=== PATIENT | female | born 2005 | race Caucasian/White ===

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

== ENCOUNTER 2023-01-07 21:55 | Emergency (ER) | payer MEDICAID, MEDICARE ==
[~2023-01-07] VITALS: Ht 172.7 cm; Wt 84.5 kg
[2023-01-07 22:10] VITALS: BP 137/60
== END 2023-01-08 01:03 | disposition home or self-care (01) ==
LOC: M ED 21:55
DX: O99.343 Other mental disorders complicating pregnancy, third trimester (principal); F43.0 Acute stress reaction; O9A.213 Injury, poisoning and certain other consequences of external causes complicating pregnancy, third trimester; S51.802A Unspecified open wound of left forearm, initial encounter; X78.9XXA Intentional self-harm by unspecified sharp object, initial encounter; F32.A Depression, unspecified; Z79.899 Other long term (current) drug therapy; Z3A.38 38 weeks gestation of pregnancy

== ENCOUNTER 2023-01-17 16:35 | Inpatient (IN) | payer MEDICARE, OTHER ==
[~2023-01-17] VITALS: Ht 172.7 cm; Wt 84.4 kg
[2023-01-17 16:49] VITALS: BP 141/68
[2023-01-17 17:05] VITALS: BP 126/75
[2023-01-17 17:16] VITALS: BP 126/65
[2023-01-17] MEDS ORDERED: HOME MED LIST COMPLETE! XX SCH (17:25)
[2023-01-17] MEDS ORDERED: LR 1,000 ML IV ONE (17:30)
[2023-01-17 18:57] VITALS: BP 119/73
[2023-01-17 20:06] LABS: AMPHETAMINES URINE REFLEX NEGATIVE (NEGATIVE); BENZODIAZEPINES URINE REFLEX NEGATIVE (NEGATIVE)
[2023-01-17 20:07] LABS: BARBITURATES URINE REFLEX NEGATIVE (NEGATIVE); CANNABINOIDS URINE REFLEX NEGATIVE (NEGATIVE); COCAINE METABOLITE URINE REFLE NEGATIVE (NEGATIVE); METHADONE URINE REFLEX NEGATIVE (NEGATIVE); OPIATES URINE REFLEX NEGATIVE (NEGATIVE); PHENCYCLIDINE URINE REFLEX NEGATIVE (NEGATIVE)
[2023-01-17 21:24] VITALS: BP 129/74
[2023-01-17] MEDS ORDERED: PROMETHAZINE 25MG/ML 1ML VIAL IV ONE (22:10)
[2023-01-17] MEDS ORDERED: BUTORPHANOL 2 MG/ML 1ML VIAL IV ONE (22:10)
[2023-01-17] MEDS ORDERED: LIDOCAINE 1% MDV 20ML VIAL INFIL PRN (23:35)
[2023-01-17] MEDS ORDERED: CARBOPROST TROMETHAMINE 250 MCG/ML AMP IM PRN (23:35)
[2023-01-17] MEDS ORDERED: METHYLERGONOVINE MALEATE 0.2MG/ML 1ML VIAL IM PRN (23:35)
[2023-01-17] MEDS ORDERED: TRANEXAMIC ACID INJection 1,000 MG in NS 100 ML IV PRN (23:35)
[2023-01-17] MEDS ORDERED: OXYTOCIN DRIP 30 UNITS in IV 1 EA IV PRN (23:35)
[2023-01-18] VITALS (24 sets, daily range): BP systolic 111–140; BP diastolic 55–85
[2023-01-18] MEDS ORDERED: NALOXONE INJ 0.4MG/1ML VIAL IV PRN (01:10)
[2023-01-18] MEDS ORDERED: diphenhydrAMINE 50MG/ML VIAL IV PRN (01:10)
[2023-01-18] MEDS ORDERED: EPIDURAL/PCA KEYS XX PRN (01:10)
[2023-01-18] MEDS ORDERED: ePHEDrine SULFATE 25 MG/5 ML(5MG/ML) SYRINGE IVP PRN (01:10)
[2023-01-18] MEDS ORDERED: FENTANYL/ROPIVACAINE/NACL BAG 100 ML EPIDURAL SCH (01:10)
[2023-01-18] MEDS ORDERED: LR 500 ML IV PRN (01:10)
[2023-01-18] MEDS ORDERED: ONDANSETRON 4MG 2ML VIAL IV PRN (01:10)
[2023-01-18 01:12] LABS: HEMATOCRIT 39.3 % (36.0-47.0); HEMOGLOBIN 12.2 g/dl (12.0-15.5); MEAN CORPUSCULAR HEMOGLOBIN 26.8 pg (27.0-33.0); MEAN CORPUSCULAR VOLUME 86.4 fl (80.0-96.0); PLATELET COUNT, AUTOMATED 268 10^3/uL (150-450); RED BLOOD COUNT 4.55 10^6/uL (4.00-5.40); WHITE BLOOD COUNT 16.8 10^3/uL (4.0-10.0)
[2023-01-18] MEDS: LR 1,000 ML IV SCH ×4 (03:52→23:35)
[2023-01-18] MEDS ORDERED: OXYTOCIN DRIP 30 UNITS in IV 1 EA IV SCH ×2 (05:10→10:45)
[2023-01-18] MEDS ORDERED: METHYLERGONOVINE MALEATE 0.2 MG TAB PO PRN (10:45)
[2023-01-18] MEDS ORDERED: DIBUCAINE 1% OINTMENT 30GM TOP PRN (10:45)
[2023-01-18] MEDS ORDERED: RHOGAM 300MCG (1500IU) INJ IM SCH (10:45)
[2023-01-18] MEDS ORDERED: ACETAMINOPHEN 500 MG TAB PO PRN (10:45)
[2023-01-18] MEDS ORDERED: ANUSOL HC CREAM 30GM TOP PRN (10:45)
[2023-01-18] MEDS ORDERED: DOCUSATE SODIUM 100MG CAPSULE PO PRN (10:45)
[2023-01-18] MEDS ORDERED: IBUPROFEN 600MG TAB PO PRN (10:45)
[2023-01-18] MEDS ORDERED: IBUPROFEN 800 MG TAB PO PRN (10:45)
[2023-01-18] MEDS ORDERED: ACETAMINOPHEN TAB 650MG DOSE (2X325MG) PO PRN (10:45)
[2023-01-19 06:00] VITALS: BP 113/75
[2023-01-19] MEDS: LR 1,000 ML IV SCH (07:35)
[2023-01-19] MEDS: PRENATAL VITAMINS CHEWABLE TABLET PO SCH (09:20)
[2023-01-19 16:00] VITALS: BP 120/78
[2023-01-19 18:00] VITALS: BP 120/78
[2023-01-20 06:00] VITALS: BP 112/72
[2023-01-20] MEDS ORDERED: MEASLES,MUMPS,RUBELLA VACCINE INJ (MMR-II) SC.IMMUN ONE (09:00)
[2023-01-20] MEDS: PRENATAL VITAMINS CHEWABLE TABLET PO SCH (09:30)
[2023-01-20] MEDS ORDERED: IBUP80TA PO (10:40)
[2023-01-20] MEDS ORDERED: ACET-683 PO (10:40)
[2023-01-20 18:00] VITALS: BP 117/57
[2023-01-21 06:07] VITALS: BP 125/73
[2023-01-21] MEDS: PRENATAL VITAMINS CHEWABLE TABLET PO SCH (08:49)
[2023-01-21] MEDS ORDERED: COLA100C5 PO (14:58)
== END 2023-01-21 14:00 | disposition home or self-care (01) | DRG 560 ==
LOC: M LDO 16:35 → M LDI 21:13 → M OBS 01-18 12:56
PROVIDERS: ADMIT Advanced Practice Midwife; ATTEND Obstetrics & Gynecology
PROC: 10E0XZZ Delivery of Products of Conception, External Approach (ICD-10-PCS; principal; 2023-01-18)
PROC: 0HQ9XZZ Repair Perineum Skin, External Approach (ICD-10-PCS; 2023-01-18)
DX: O99.344 Other mental disorders complicating childbirth (principal); O99.324 Drug use complicating childbirth; F10.11 Alcohol abuse, in remission; F17.210 Nicotine dependence, cigarettes, uncomplicated; Z3A.39 39 weeks gestation of pregnancy; F12.10 Cannabis abuse, uncomplicated; O70.0 First degree perineal laceration during delivery; Z37.0 Single live birth; F43.10 Post-traumatic stress disorder, unspecified; O99.334 Smoking (tobacco) complicating childbirth; F60.3 Borderline personality disorder; O99.314 Alcohol use complicating childbirth

== ENCOUNTER 2023-03-20 01:50 | Emergency (ER) | payer OTHER ==
[~2023-03-20 01:50] MED LIST changes: +ACET-683 PO; +COLA100C5 PO; +IBUP80TA PO
[2023-03-20] MEDS ORDERED: LORazepam 2 MG/ML 1ML VIAL As Ordered ONE (02:36)
[2023-03-20 03:02] LABS: ETHYL ALCOHOL (ETHANOL) 0.172 % (0.000-0.010)
[2023-03-20 03:03] LABS: SALICYLATE LEVEL < 3.0 MG/DL (<30)
[2023-03-20 03:04] LABS: ACETAMINOPHEN LEVEL < 2.0 UG/ML (10.0-20.0); ALBUMIN 3.9 G/DL (3.2-5.2); ALKALINE PHOSPHATASE 123 U/L (46-116); ALT/SGPT 23 U/L (7.0-40); AST/SGOT 31 U/L (<34); BILIRUBIN,DIRECT < 0.1 MG/DL (<0.4); BILIRUBIN,TOTAL 0.3 MG/DL (0.3-1.2); BLOOD UREA NITROGEN 18 MG/DL (9-23); CALCIUM LEVEL 8.3 MG/DL (8.5-10.1); CARBON DIOXIDE LEVEL 18 MMOL/L (20-31); CHLORIDE LEVEL 112 MMOL/L (98-107); GLUCOSE, FASTING 87 MG/DL (60-100); POTASSIUM SERUM 4.4 MMOL/L (3.5-5.1); SODIUM LEVEL 141 MMOL/L (136-145); TOTAL PROTEIN 7.2 G/DL (5.7-8.2)
[2023-03-20 03:13] LABS: HCG, SERUM QUALITATIVE NEGATIVE (NEGATIVE)
[2023-03-20 03:23] LABS: BASO % 0.3 % (0.0-1.0); EOS # 0.1 10^3/uL (0.0-0.5); EOS % 0.9 % (0.0-3.0); HEMATOCRIT 43.5 % (36.0-47.0); HEMOGLOBIN 13.8 g/dl (12.0-15.5); LYMPH % 23.3 % (24.0-44.0); MEAN CORPUSCULAR HEMOGLOBIN 27.3 pg (27.0-33.0); MEAN CORPUSCULAR HGB CONC 31.7 g/dl (32.0-36.5); MONO # 0.9 10^3/uL (0.0-0.8); NEUTROPHILS # 8.7 10^3/uL (1.5-8.5); NEUTROPHILS % 68.3 % (36.0-66.0); PLATELET COUNT, AUTOMATED 319 10^3/uL (150-450); RED BLOOD COUNT 5.06 10^6/uL (4.00-5.40); WHITE BLOOD COUNT 12.7 10^3/uL (4.0-10.0)
[2023-03-20 06:17] LABS: AMPHETAMINES LEVEL URINE NEGATIVE (NEGATIVE); BARBITURATES URINE NEGATIVE (NEGATIVE); BENZODIAZEPINES URINE NEGATIVE (NEGATIVE); COCAINE METABOLITE URINE NEGATIVE (NEGATIVE); METHADONE URINE NEGATIVE (NEGATIVE); OPIATES URINE NEGATIVE (NEGATIVE); PHENCYCLIDINE URINE NEGATIVE (NEGATIVE)
[2023-03-20 06:23] LABS: CANNABINOIDS URINE POSITIVE (NEGATIVE)
== END 2023-03-20 13:27 | disposition home or self-care (01) ==
LOC: M ED 01:50
DX: F10.120 Alcohol abuse with intoxication, uncomplicated (principal); R22.0 Localized swelling, mass and lump, head; R04.0 Epistaxis; Y04.8XXA Assault by other bodily force, initial encounter

== ENCOUNTER 2023-05-01 09:32 | Inpatient (IN) | payer OTHER ==
[~2023-05-01] VITALS: Ht 175.3 cm; Wt 73.6 kg
[2023-05-01 10:39] LABS: HEMATOCRIT 43.7 % (36.0-47.0); MEAN CORPUSCULAR VOLUME 87.4 fl (80.0-96.0); PLATELET COUNT, AUTOMATED 339 10^3/uL (150-450); WHITE BLOOD COUNT 6.1 10^3/uL (4.0-10.0)
[2023-05-01 11:07] LABS: ETHYL ALCOHOL (ETHANOL) < 0.003 % (0.000-0.010)
[2023-05-01 11:09] LABS: ACETAMINOPHEN LEVEL < 2.0 UG/ML (10.0-20.0); ALBUMIN 4.1 G/DL (3.2-5.2); ALKALINE PHOSPHATASE 109 U/L (46-116); ALT/SGPT 24 U/L (7.0-40); AST/SGOT 17 U/L (<34); BILIRUBIN,DIRECT 0.2 MG/DL (<0.4); BILIRUBIN,TOTAL 0.5 MG/DL (0.3-1.2); BLOOD UREA NITROGEN 10 MG/DL (9-23); CALCIUM LEVEL 8.6 MG/DL (8.5-10.1); CARBON DIOXIDE LEVEL 21 MMOL/L (20-31); CHLORIDE LEVEL 111 MMOL/L (98-107); CREATININE FOR GFR 0.62 MG/DL (0.55-1.30); GLUCOSE, FASTING 86 MG/DL (60-100); POTASSIUM SERUM 4.5 MMOL/L (3.5-5.1); SALICYLATE LEVEL < 3.0 MG/DL (<30); SODIUM LEVEL 142 MMOL/L (136-145)
[2023-05-01 11:12] LABS: THYROID STIMULATING HORMONE 1.448 uIU/ML (0.48-4.17)
[2023-05-01 11:13] LABS: HCG, SERUM QUALITATIVE NEGATIVE (NEGATIVE)
[2023-05-01 12:06] LABS: AMPHETAMINES LEVEL URINE NEGATIVE (NEGATIVE); BARBITURATES URINE NEGATIVE (NEGATIVE); BENZODIAZEPINES URINE NEGATIVE (NEGATIVE); METHADONE URINE NEGATIVE (NEGATIVE); OPIATES URINE NEGATIVE (NEGATIVE); PHENCYCLIDINE URINE NEGATIVE (NEGATIVE)
[2023-05-01 12:07] LABS: CANNABINOIDS URINE POSITIVE (NEGATIVE); COCAINE METABOLITE URINE POSITIVE (NEGATIVE)
[2023-05-01] MEDS ORDERED: HOME MED LIST COMPLETE! XX SCH (13:10)
[2023-05-01] MEDS ORDERED: LORazepam 2 MG TAB PO PRN (14:55)
[2023-05-01] MEDS ORDERED: IBUPROFEN 400MG TAB PO PRN (14:55)
[2023-05-01] MEDS ORDERED: diphenhydrAMINE 25MG CAP PO PRN (14:55)
[2023-05-01] MEDS ORDERED: ACETAMINOPHEN TAB 650MG DOSE (2X325MG) PO PRN (14:55)
[2023-05-01] MEDS ORDERED: MOM 30ML SUSPENSION UDC PO PRN (14:55)
[2023-05-01] MEDS ORDERED: MAALOX 30 ML SUSP *UDC PO PRN (14:55)
[2023-05-01 16:43] VITALS: BP 116/69; TEMP 97.9; O2SAT 99
[2023-05-01 16:47] VITALS: BP 116/69
[2023-05-01] MEDS: NICOTINE 21MG/24HR 1 EA TRANSDERMAL TD SCH (18:56)
[2023-05-01] MEDS: traZODone 50 MG TAB PO PRN (20:50)
[2023-05-01] MEDS: THIAMINE 100 MG TAB PO SCH (20:50)
[2023-05-02] MEDS: NICOTINE 21MG/24HR 1 EA TRANSDERMAL TD SCH (07:53)
[2023-05-02] MEDS: THIAMINE 100 MG TAB PO SCH (07:54)
[2023-05-02] MEDS ORDERED: FOLIC ACID 1MG TAB PO SCH (09:00)
[2023-05-02] MEDS ORDERED: MULTIVITAMINS/MINERALS THERAP 1 TAB PO SCH (09:00)
[2023-05-02] MEDS ORDERED: OXcarbazepine 150 MG TAB PO SCH (11:18)
[2023-05-02 16:00] VITALS: BP 134/60; TEMP 98.3; O2SAT 97
[2023-05-02] MEDS: OXcarbazepine 300 MG TAB PO SCH (20:09)
[2023-05-02] MEDS: traZODone 50 MG TAB PO PRN (20:09)
[2023-05-03 06:28] VITALS: BP 128/69; TEMP 97.3; O2SAT 100
[2023-05-03] MEDS: NICOTINE 21MG/24HR 1 EA TRANSDERMAL TD SCH (08:37)
[2023-05-03] MEDS: OXcarbazepine 300 MG TAB PO SCH ×2 (08:38→19:58)
[2023-05-03 16:18] VITALS: BP 111/56; TEMP 97.5; O2SAT 96
[2023-05-03] MEDS: PRAZOSIN 1 MG CAP PO SCH (19:58)
[2023-05-03] MEDS: traZODone 50 MG TAB PO PRN (20:16)
[2023-05-04 06:42] VITALS: BP 111/62; TEMP 96.4; O2SAT 98
[2023-05-04] MEDS: OXcarbazepine 300 MG TAB PO SCH ×2 (07:49→20:18)
[2023-05-04] MEDS: NICOTINE 21MG/24HR 1 EA TRANSDERMAL TD SCH (07:49)
[2023-05-04 16:23] VITALS: BP 119/62; TEMP 98.1; O2SAT 96
[2023-05-04] MEDS: traZODone 50 MG TAB PO PRN (20:18)
[2023-05-04] MEDS: PRAZOSIN 1 MG CAP PO SCH (20:18)
[2023-05-05 06:32] VITALS: BP 119/63; TEMP 98.2; O2SAT 99
[2023-05-05] MEDS: OXcarbazepine 300 MG TAB PO SCH ×2 (08:23→20:12)
[2023-05-05] MEDS: NICOTINE 21MG/24HR 1 EA TRANSDERMAL TD SCH (08:24)
[2023-05-05 18:00] VITALS: BP 136/70; TEMP 96.5; O2SAT 98
[2023-05-05] MEDS: traZODone 50 MG TAB PO PRN (20:12)
[2023-05-05] MEDS: PRAZOSIN 1 MG CAP PO SCH (20:13)
[2023-05-06] MEDS: OXcarbazepine 300 MG TAB PO SCH ×2 (08:11→20:13)
[2023-05-06] MEDS: NICOTINE 21MG/24HR 1 EA TRANSDERMAL TD SCH (08:14)
[2023-05-06] MEDS ORDERED: traZODone 50 MG TAB PO PRN (08:50)
[2023-05-06] MEDS ORDERED: PILL CUTTER 1 EACH XX PRN (11:20)
[2023-05-06 17:50] VITALS: BP 144/74; TEMP 96.8
[2023-05-06 20:14] VITALS: BP 130/72
[2023-05-06] MEDS: PRAZOSIN 1 MG CAP PO SCH (20:14)
[2023-05-07 06:22] VITALS: BP 116/67; TEMP 98.5; O2SAT 97
[2023-05-07] MEDS: OXcarbazepine 300 MG TAB PO SCH (09:08)
[2023-05-07] MEDS: NICOTINE 21MG/24HR 1 EA TRANSDERMAL TD SCH (09:09)
[2023-05-07] MEDS ORDERED: TRAZ-252 PO (10:38)
[2023-05-07] MEDS ORDERED: ABIL1TAB11 PO (10:38)
[2023-05-07] MEDS ORDERED: OXCA300T14 PO (10:38)
[2023-05-07] MEDS ORDERED: MINI1CAP PO (10:38)
== END 2023-05-07 12:58 | disposition home or self-care (01) | DRG 754 ==
LOC: M ED 09:32 → M ED INP 14:54 → M PSY 16:20
PROVIDERS: ADMIT Student in an Organized Health Care Education/Training Program; ATTEND Student in an Organized Health Care Education/Training Program
DX: F32.A Depression, unspecified (principal); F60.3 Borderline personality disorder; R45.851 Suicidal ideations; Z91.410 Personal history of adult physical and sexual abuse; Z63.0 Problems in relationship with spouse or partner; Z91.52 Personal history of nonsuicidal self-harm; F12.10 Cannabis abuse, uncomplicated; F14.10 Cocaine abuse, uncomplicated; F43.10 Post-traumatic stress disorder, unspecified; F31.9 Bipolar disorder, unspecified; F90.9 Attention-deficit hyperactivity disorder, unspecified type; F41.1 Generalized anxiety disorder; F10.20 Alcohol dependence, uncomplicated; F17.210 Nicotine dependence, cigarettes, uncomplicated; Z91.018 Allergy to other foods; Z20.822 Contact with and (suspected) exposure to COVID-19; Z62.810 Personal history of physical and sexual abuse in childhood; Z56.0 Unemployment, unspecified; Z62.811 Personal history of psychological abuse in childhood; Z91.51 Personal history of suicidal behavior

== ENCOUNTER 2023-05-10 16:25 | Emergency (ER) | payer OTHER ==
[~2023-05-10] VITALS: Ht 165.1 cm; Wt 77.0 kg
[~2023-05-10 16:25] MED LIST changes: +ABIL1TAB11 PO; +MINI1CAP PO; +OXCA300T14 PO; +TRAZ-252 PO
[2023-05-10] MEDS ORDERED: TRIL150T PO (16:37)
[2023-05-10 16:38] VITALS: TEMP 98.6
[2023-05-10] MEDS ORDERED: NS 1,000 ML IV SCH (17:15)
[2023-05-10 17:31] LABS: BASO # 0.1 10^3/uL (0.0-0.2); BASO % 0.7 % (0.0-1.0); EOS % 0.1 % (0.0-3.0); HEMATOCRIT 41.8 % (36.0-47.0); HEMOGLOBIN 13.2 g/dl (12.0-15.5); LYMPH # 2.1 10^3/uL (1.5-5.0); LYMPH % 24.5 % (24.0-44.0); MEAN CORPUSCULAR HEMOGLOBIN 27.6 pg (27.0-33.0); MEAN CORPUSCULAR HGB CONC 31.6 g/dl (32.0-36.5); MEAN CORPUSCULAR VOLUME 87.3 fl (80.0-96.0); MONO # 0.6 10^3/uL (0.0-0.8); MONO % 7.1 % (2.0-8.0); NEUTROPHILS # 5.8 10^3/uL (1.5-8.5); NEUTROPHILS % 67.4 % (36.0-66.0); PLATELET COUNT, AUTOMATED 327 10^3/uL (150-450); RED BLOOD COUNT 4.79 10^6/uL (4.00-5.40); WHITE BLOOD COUNT 8.7 10^3/uL (4.0-10.0)
[2023-05-10 17:36] LABS: HCG, SERUM QUALITATIVE NEGATIVE (NEGATIVE)
[2023-05-10 17:37] LABS: ETHYL ALCOHOL (ETHANOL) < 0.003 % (0.000-0.010)
[2023-05-10 17:38] LABS: SALICYLATE LEVEL < 3.0 MG/DL (<30)
[2023-05-10 17:39] LABS: ACETAMINOPHEN LEVEL < 2.0 UG/ML (10.0-20.0); ALBUMIN 4.3 G/DL (3.2-5.2); ALKALINE PHOSPHATASE 115 U/L (46-116); ALT/SGPT 18 U/L (7.0-40); AST/SGOT 12 U/L (<34); BILIRUBIN,DIRECT 0.2 MG/DL (<0.4); BILIRUBIN,TOTAL 0.5 MG/DL (0.3-1.2); BLOOD UREA NITROGEN 10 MG/DL (9-23); CALCIUM LEVEL 9.6 MG/DL (8.5-10.1); CARBON DIOXIDE LEVEL 23 MMOL/L (20-31); CHLORIDE LEVEL 107 MMOL/L (98-107); CREATININE FOR GFR 0.61 MG/DL (0.55-1.30); GLUCOSE, FASTING 80 MG/DL (60-100); POTASSIUM SERUM 3.8 MMOL/L (3.5-5.1); SODIUM LEVEL 139 MMOL/L (136-145); TOTAL PROTEIN 7.1 G/DL (5.7-8.2)
[2023-05-10 17:45] VITALS: BP 142/79
[2023-05-10 17:49] LABS: CPK CREATINE PHOSPHOKINASE 130 U/L (34-145)
[2023-05-10 18:00] VITALS: O2SAT 97
[2023-05-10 18:16] LABS: RSV AMPLIFICATION NEGATIVE (NEGATIVE)
[2023-05-10 18:31] LABS: AMPHETAMINES LEVEL URINE NEGATIVE (NEGATIVE); BENZODIAZEPINES URINE NEGATIVE (NEGATIVE); COCAINE METABOLITE URINE NEGATIVE (NEGATIVE); METHADONE URINE NEGATIVE (NEGATIVE)
[2023-05-10 18:32] LABS: OPIATES URINE NEGATIVE (NEGATIVE); PHENCYCLIDINE URINE NEGATIVE (NEGATIVE)
[2023-05-10 18:35] LABS: BARBITURATES URINE NEGATIVE (NEGATIVE)
[2023-05-10 18:46] LABS: CANNABINOIDS URINE POSITIVE (NEGATIVE)
== END 2023-05-10 18:24 | disposition left against medical advice (07) ==
LOC: EDBD 16:25 → M ED 16:25
DX: F19.10 Other psychoactive substance abuse, uncomplicated (principal); F17.200 Nicotine dependence, unspecified, uncomplicated; Z91.018 Allergy to other foods; Z79.899 Other long term (current) drug therapy

== ENCOUNTER 2023-07-29 11:44 | Emergency (ER) | payer OTHER ==
[~2023-07-29] VITALS: Ht 172.7 cm; Wt 72.5 kg
[2023-07-29 12:40] LABS: HEMATOCRIT 41.1 % (36.0-47.0); HEMOGLOBIN 13.5 g/dl (12.0-15.5); MEAN CORPUSCULAR HGB CONC 32.8 g/dl (32.0-36.5); MEAN CORPUSCULAR VOLUME 85.3 fl (80.0-96.0); PLATELET COUNT, AUTOMATED 312 10^3/uL (150-450); RED BLOOD COUNT 4.82 10^6/uL (4.00-5.40); WHITE BLOOD COUNT 6.6 10^3/uL (4.0-10.0)
[2023-07-29 13:05] LABS: AMPHETAMINES LEVEL URINE NEGATIVE (NEGATIVE); BARBITURATES URINE NEGATIVE (NEGATIVE); BENZODIAZEPINES URINE NEGATIVE (NEGATIVE)
[2023-07-29 13:06] LABS: COCAINE METABOLITE URINE NEGATIVE (NEGATIVE); METHADONE URINE NEGATIVE (NEGATIVE); OPIATES URINE NEGATIVE (NEGATIVE); PHENCYCLIDINE URINE NEGATIVE (NEGATIVE)
[2023-07-29 13:08] LABS: ETHYL ALCOHOL (ETHANOL) < 0.003 % (0.000-0.010)
[2023-07-29 13:09] LABS: ACETAMINOPHEN LEVEL < 2.0 UG/ML (10.0-20.0)
[2023-07-29 13:10] LABS: ALKALINE PHOSPHATASE 103 U/L (46-116); ALT/SGPT 16 U/L (7.0-40); AST/SGOT 10 U/L (<34); BILIRUBIN,DIRECT 0.2 MG/DL (<0.4); BILIRUBIN,TOTAL 0.5 MG/DL (0.3-1.2); BLOOD UREA NITROGEN 15 MG/DL (9-23); CALCIUM LEVEL 9.2 MG/DL (8.5-10.1); CARBON DIOXIDE LEVEL 19 MMOL/L (20-31); CHLORIDE LEVEL 108 MMOL/L (98-107); CREATININE FOR GFR 0.72 MG/DL (0.55-1.30); GLUCOSE, FASTING 124 MG/DL (60-100); POTASSIUM SERUM 3.9 MMOL/L (3.5-5.1); SALICYLATE LEVEL < 3.0 MG/DL (<30); SODIUM LEVEL 139 MMOL/L (136-145); TOTAL PROTEIN 6.8 G/DL (5.7-8.2)
[2023-07-29 13:11] LABS: THYROID STIMULATING HORMONE 0.904 uIU/ML (0.48-4.17)
[2023-07-29 13:18] LABS: CANNABINOIDS URINE POSITIVE (NEGATIVE)
[2023-07-29 13:29] LABS: HCG, SERUM QUALITATIVE NEGATIVE (NEGATIVE)
[2023-07-29] MEDS ORDERED: MED REC IN PROGRESS XX SCH (14:45)
[2023-07-29] MEDS ORDERED: OXCA300T14 PO (14:53)
[2023-07-29] MEDS ORDERED: HOME MED LIST COMPLETE! XX SCH (15:50)
[2023-07-29] MEDS ORDERED: OXcarbazepine 300 MG TAB PO SCH (21:00)
[2023-07-29] MEDS ORDERED: PRAZOSIN 1 MG CAP PO SCH (21:00)
[2023-07-30 13:01] VITALS: BP 108/65; TEMP 98.2; O2SAT 96
== END 2023-07-30 13:02 | disposition home or self-care (01) ==
LOC: M ED 11:44
DX: Z76.5 Malingerer [conscious simulation] (principal); F32.A Depression, unspecified; F17.200 Nicotine dependence, unspecified, uncomplicated

== ENCOUNTER 2023-08-24 10:44 | Inpatient (IN) | payer OTHER ==
[~2023-08-24] VITALS: Ht 172.7 cm; Wt 73.7 kg
[2023-08-24] MEDS ORDERED: LIDOCAINE W/EPINEPHRINE 1% 20ML VIAL SC ONE (11:35)
[2023-08-24] MEDS ORDERED: MED REC IN PROGRESS XX SCH (12:05)
[2023-08-24 12:25] LABS: HEMATOCRIT 39.5 % (36.0-47.0); HEMOGLOBIN 13.2 g/dl (12.0-15.5); MEAN CORPUSCULAR HEMOGLOBIN 28.3 pg (27.0-33.0); MEAN CORPUSCULAR HGB CONC 33.4 g/dl (32.0-36.5); MEAN CORPUSCULAR VOLUME 84.6 fl (80.0-96.0); PLATELET COUNT, AUTOMATED 309 10^3/uL (150-450); RED BLOOD COUNT 4.67 10^6/uL (4.00-5.40); WHITE BLOOD COUNT 7.6 10^3/uL (4.0-10.0)
[2023-08-24] MEDS ORDERED: LORazepam 2 MG/ML 1ML VIAL IM STA (12:28)
[2023-08-24] MEDS ORDERED: OLANZapine INTRAMUSCULAR 10MG VIAL IM ONE (12:30)
[2023-08-24 12:53] LABS: ETHYL ALCOHOL (ETHANOL) < 0.003 % (0.000-0.010)
[2023-08-24 12:54] LABS: ACETAMINOPHEN LEVEL < 2.0 UG/ML (10.0-20.0); ALBUMIN 2.2 G/DL (3.2-5.2); ALKALINE PHOSPHATASE 112 U/L (46-116); ALT/SGPT 14 U/L (7.0-40); AST/SGOT 12 U/L (<34); BILIRUBIN,DIRECT 0.1 MG/DL (<0.4); BILIRUBIN,TOTAL 0.4 MG/DL (0.3-1.2); BLOOD UREA NITROGEN 15 MG/DL (9-23); CALCIUM LEVEL 9.2 MG/DL (8.5-10.1); CARBON DIOXIDE LEVEL 21 MMOL/L (20-31); CHLORIDE LEVEL 109 MMOL/L (98-107); CREATININE FOR GFR 0.59 MG/DL (0.55-1.30); GLUCOSE, FASTING 149 MG/DL (60-100); POTASSIUM SERUM 3.8 MMOL/L (3.5-5.1); SALICYLATE LEVEL < 3.0 MG/DL (<30); SODIUM LEVEL 141 MMOL/L (136-145); TOTAL PROTEIN 6.8 G/DL (5.7-8.2)
[2023-08-24] MEDS ORDERED: HOME MED LIST COMPLETE! XX SCH (12:55)
[2023-08-24 13:06] LABS: HCG, SERUM QUALITATIVE NEGATIVE (NEGATIVE)
[2023-08-24 15:23] LABS: AMPHETAMINES LEVEL URINE NEGATIVE (NEGATIVE); BARBITURATES URINE NEGATIVE (NEGATIVE); BENZODIAZEPINES URINE NEGATIVE (NEGATIVE); COCAINE METABOLITE URINE NEGATIVE (NEGATIVE); METHADONE URINE NEGATIVE (NEGATIVE); OPIATES URINE NEGATIVE (NEGATIVE); PHENCYCLIDINE URINE NEGATIVE (NEGATIVE)
[2023-08-24 15:28] LABS: CANNABINOIDS URINE POSITIVE (NEGATIVE)
[2023-08-26 06:29] VITALS: BP 102/68; TEMP 98.2; O2SAT 97
[2023-08-26] MEDS ORDERED: risperiDONE 2 MG TAB PO ONE (14:00)
[2023-08-26 18:00] VITALS: BP 137/75; TEMP 97.6; O2SAT 98
[2023-08-26] MEDS: traZODone 50 MG TAB PO PRN (20:18)
[2023-08-26] MEDS: PRAZOSIN 1 MG CAP PO SCH (20:19)
[2023-08-27 06:38] VITALS: BP 106/51; TEMP 97.6; O2SAT 98
[2023-08-27] MEDS: risperiDONE 2 MG TAB PO SCH (09:04)
[2023-08-27] MEDS: NICOTINE 21MG/24HR 1 EA TRANSDERMAL TD SCH (10:09)
[2023-08-27] MEDS ORDERED: PALIPERIDONE PAL 234MG/1.5ML INJ (INVEGA)(FREE PSY INPT ONLY) IM ONE (13:00)
[2023-08-27 16:20] VITALS: BP 137/73; TEMP 98.4; O2SAT 100
[2023-08-27 19:57] VITALS: BP 126/76
[2023-08-27] MEDS: PRAZOSIN 1 MG CAP PO SCH (19:59)
[2023-08-27] MEDS: traZODone 50 MG TAB PO PRN (20:01)
[2023-08-27] MEDS: PILL CUTTER 1 EACH XX PRN (20:01)
[2023-08-27] MEDS ORDERED: risperiDONE 2 MG TAB PO SCH (21:00)
[2023-08-28] MEDS: NICOTINE 21MG/24HR 1 EA TRANSDERMAL TD SCH (08:48)
[2023-08-28] MEDS: risperiDONE 2 MG TAB PO SCH (08:48)
[2023-08-28 18:29] VITALS: BP 140/80; TEMP 98; O2SAT 99
[2023-08-28 20:02] VITALS: BP 152/74
[2023-08-28] MEDS: PRAZOSIN 1 MG CAP PO SCH (20:04)
[2023-08-28] MEDS: PILL CUTTER 1 EACH XX PRN (20:05)
[2023-08-28] MEDS: traZODone 50 MG TAB PO PRN (20:05)
[2023-08-29 07:01] VITALS: BP 148/68; TEMP 98.4; O2SAT 97
[2023-08-29] MEDS: risperiDONE 2 MG TAB PO SCH (08:46)
[2023-08-29] MEDS: NICOTINE 21MG/24HR 1 EA TRANSDERMAL TD SCH (08:47)
[2023-08-29] MEDS: PRAZOSIN 1 MG CAP PO SCH (21:00)
[2023-08-30 06:07] VITALS: BP 124/62; TEMP 98.7; O2SAT 97
[2023-08-30] MEDS: NICOTINE 21MG/24HR 1 EA TRANSDERMAL TD SCH (08:11)
[2023-08-30] MEDS: risperiDONE 2 MG TAB PO SCH (08:11)
[2023-08-30 18:20] VITALS: BP 129/63; TEMP 97.8; O2SAT 98
[2023-08-30] MEDS: traZODone 50 MG TAB PO PRN (20:18)
[2023-08-30] MEDS: PRAZOSIN 1 MG CAP PO SCH (20:19)
[2023-08-31 06:25] VITALS: BP 115/58; TEMP 98.9; O2SAT 99
[2023-08-31] MEDS: risperiDONE 2 MG TAB PO SCH (08:04)
[2023-08-31] MEDS: NICOTINE 21MG/24HR 1 EA TRANSDERMAL TD SCH (08:05)
[2023-08-31] MEDS ORDERED: PALIPERIDONE PAL 156MG/1ML INJ(INVEGA)(FREE PSY INPT ONLY) IM ONE ×2 (09:00→13:00)
[2023-08-31 18:34] VITALS: BP 127/64; TEMP 98.3; O2SAT 97
[2023-08-31] MEDS: PRAZOSIN 1 MG CAP PO SCH (21:56)
[2023-09-01 06:37] VITALS: BP 101/53; TEMP 97.9; O2SAT 96
[2023-09-01] MEDS: risperiDONE 2 MG TAB PO SCH (08:11)
[2023-09-01] MEDS: NICOTINE 21MG/24HR 1 EA TRANSDERMAL TD SCH (08:12)
[2023-09-01 18:15] VITALS: BP 135/77; TEMP 97.2; O2SAT 100
[2023-09-01 21:11] VITALS: BP 133/66
[2023-09-01 21:14] VITALS: BP 133/66
[2023-09-01] MEDS: traZODone 50 MG TAB PO PRN (21:14)
[2023-09-01] MEDS: PRAZOSIN 1 MG CAP PO SCH (21:14)
[2023-09-01] MEDS: PILL CUTTER 1 EACH XX PRN (21:14)
[2023-09-02] MEDS: risperiDONE 2 MG TAB PO SCH (08:32)
[2023-09-02] MEDS: NICOTINE 21MG/24HR 1 EA TRANSDERMAL TD SCH (08:32)
[2023-09-02] MEDS ORDERED: NICO21PAT TD (10:32)
[2023-09-02] MEDS ORDERED: RISP-9 PO (10:32)
[2023-09-02] MEDS ORDERED: TRAZ-252 PO (10:32)
[2023-09-02] MEDS ORDERED: MINI1CAP PO (10:32)
== END 2023-09-02 12:39 | disposition home or self-care (01) | DRG 753 ==
LOC: M ED 10:44 → M ED INP 08-25 13:22 → M PSY 08-25 18:18
PROVIDERS: ADMIT Student in an Organized Health Care Education/Training Program; ATTEND Student in an Organized Health Care Education/Training Program
PROC: 0HQLXZZ Repair Left Lower Leg Skin, External Approach (ICD-10-PCS; principal; 2023-08-25)
DX: F31.9 Bipolar disorder, unspecified (principal); Z78.1 Physical restraint status; F14.10 Cocaine abuse, uncomplicated; F43.10 Post-traumatic stress disorder, unspecified; F60.3 Borderline personality disorder; F10.10 Alcohol abuse, uncomplicated; F12.10 Cannabis abuse, uncomplicated; F17.200 Nicotine dependence, unspecified, uncomplicated; S51.812A Laceration without foreign body of left forearm, initial encounter; X78.1XXA Intentional self-harm by knife, initial encounter; Y92.090 Kitchen in other non-institutional residence as the place of occurrence of the external cause; Y99.8 Other external cause status; Z62.819 Personal history of unspecified abuse in childhood; Y93.G3 Activity, cooking and baking; Z91.51 Personal history of suicidal behavior; Z81.8 Family history of other mental and behavioral disorders

== ENCOUNTER → 2023-12-03 | Outpatient (REF) ==
[~2023-12-03] MED LIST changes: +RISP-9 PO
== END ==
LOC: M LAB 13:17
PROVIDERS: ATTEND Nurse Practitioner Adult Health
DX: Z00.00 Encounter for general adult medical examination without abnormal findings (principal)

== ENCOUNTER → 2024-09-10 | Outpatient (REF) ==
[~2024-09-10] MED LIST changes: +RISP-106 PO; -RISP-9 PO
== END ==
LOC: M EMP 12:45
PROVIDERS: ATTEND Family Medicine
DX: Z20.822 Contact with and (suspected) exposure to COVID-19 (principal)

== ENCOUNTER → 2025-01-13 | Outpatient (REF) | LOC: M EMP 10:04 | PROVIDERS: ATTEND Family Medicine | DX: Z01.89 Encounter for other specified special examinations (principal) ==